=== PATIENT | male | born 1940 | race Caucasian/White ===

== ENCOUNTER 2020-04-23 10:00 | Observation (INO) | payer BC ==
--- NOTE | 2020-04-23 13:25 | CT ---
EXAMINATION TYPE: CT brain wo con DATE OF EXAM: 04/23/2020 COMPARISON: None INDICATION: dizziness DLP: 1099.4 mGycm, Automated exposure control for dose reduction was used. CONTRAST: None CT of the brain is performed utilizing 3 mm thick sections through the posterior fossa and 3 mm thick sections through the remaining calvarium. Study is performed within 24 hours of arrival to the hosp ital. No abnormal hyperdensity is present to suggest an acute intracranial hemorrhage. No mass lesion is evident. No acute infarcts are evident. Ventricles and sulci are appropriate for the patient age. There is a retention cyst or polyp within the left maxillary sinus. Remaining paranasal sinuses withi n the [id number] are clear. Mastoid air cells are clear. There is a subcutaneous nodule in the lower occipital region posteriorly. Preliminary report was provided at the time of preliminary interpretation. IMPRESSIONS: 1. No acute intracranial process.
[2020-04-23 13:42] LABS: Albumin 3.8 g/dL (3.5-5.0); Calcium 8.4 mg/dL (8.4-10.2); Magnesium 1.8 mg/dL (1.6-2.3); Potassium 4.3 mmol/L (3.5-5.1); Total Bilirubin 2.4 mg/dL (0.2-1.3); Total Protein 6.2 g/dL (6.3-8.2)
[2020-04-23 14:05] LABS: D-Dimer 0.35 mg/L FEU (<0.60); INR 1.2 (<1.2); Prothrombin Time 11.8 sec (9.0-12.0)
[2020-04-23 14:06] LABS: Partial Thromboplastin Time 18.9 sec (22.0-30.0)
[2020-04-23 14:21] LABS: Basophils % (A) 0 %; Eosinophils # (A) 0.1 k/uL (0-0.7); Eosinophils % (A) 1 %; HCT 35.5 % (39.0-53.0); HGB 11.3 gm/dL (13.0-17.5); Hypochromasia Moderate; Lymphocytes # (A) 0.3 k/uL (1.0-4.8); Lymphocytes % (A) 5 %; MCH 21.8 pg (25.0-35.0); MCHC 31.8 g/dL (31.0-37.0); MCV 68.7 fL (80.0-100.0); Mean Platelet Volume 6.9; Microcytosis Marked; Monocytes # (A) 0.4 k/uL (0-1.0); Monocytes % (A) 5 %; Neutrophils # (A) 6.6 k/uL (1.3-7.7); Neutrophils % (A) 89 %; Platelet Count 64 k/uL (150-450); Poikilocytosis Slight; RBC 5.17 m/uL (4.30-5.90); WBC 7.4 k/uL (3.8-10.6)
--- NOTE | 2020-04-23 14:33 | XR ---
Right hand HISTORY: Pain, trauma 3 views of right hand. Bone mineralization, joint spaces and alignment are maintained. IMPRESSION: No fracture or dislocation.
--- NOTE | 2020-04-23 14:34 | XR ---
EXAMINATION TYPE: XR chest 2V DATE OF EXAM: 04/23/2020 COMPARISON: 04/23/2020 earlier exam INDICATION: Enlarged heart TECHNIQUE: Frontal and lateral views of the chest are obtained. FINDINGS: The heart size is normal. The pulmonary vasculature is normal. The lungs are clear. IMPRESSION: 1. No acute pulmonary process.
[2020-04-23] MEDS ORDERED: NALOXONE 0.4 MG/ML 1 ML VIAL IV PRN (14:36)
[2020-04-23] MEDS ORDERED: ONDANSETRON 4 MG/2 ML VIAL IVP PRN (14:36)
[2020-04-23] MEDS ORDERED: ACETAMINOPHEN TAB 325 MG TAB PO PRN (15:29)
[2020-04-23] MEDS ORDERED: HYDROcodone/APAP 5-325MG 1 EACH TAB PO PRN (15:29)
--- NOTE | 2020-04-23 18:13 | P.HPIM ---
History of Present Illness H&P Date: 04/23/20 Chief Complaint: Syncopal episode 79-year-old male with PMH of hepatitis B cirrhosis, aortic aneurysm follows at [facility] presents to the ED after syncopal episode. Patient states that he woke up around 4 AM feeling cold and shivering. He went downstairs to use the toilet. As he got up he started feeling dizzy and lost consciousness. He denied any bladder or bowel incontinence. He denied any postictal confusion. He was able to regain consciousness after a few seconds. He was able to measure his temperature 100F. Patient also reports pain in between the shoulder blades that has been ongoing for the past 3-4 days. He also reports some blood in his urine. He denies any headache, lower extremity edema, nausea or vomiting, cough, chest pain, shortness of breath, palpitations. No changes in bowel habits. He denies any changes in appetite or weight. He denies any current dizziness, numbness/weakness/tingling of the extremities. In the ED, his vital signs were stable. CBC showed hemoglobin of 11.3, MCV of 68.7 and platelet count of 64. INR was 1.2. D-dimer was negative. CMP showed sodium of 135, BUN of 21, glucose 136, total bilirubin 2.4. Troponin was less than 0.012 with EKG showing sinus rhythm with first-degree AV block. Chest x-ray was negative. CT brain was negative. And x-ray was negative. Patient is admitted for syncopal episode with cardiology on consultation. Review of Systems Pertinent positives and negatives as discussed in HPI, a complete review of systems was performed and all other systems are negative. Medications and Allergies Home Medications Medication Instructions Recorded Confirmed Type Aspirin 325 mg PO DAILY PRN 04/23/20 04/23/20 History Metoprolol Succinate (ER) [Toprol 25 mg PO DAILY 04/23/20 04/23/20 History XL] Tenofovir Alafenamide Fumarate 25 mg PO DAILY 04/23/20 04/23/20 History [Vemlidy] Allergies Allergy/AdvReac Type Severity Reaction Status Date / Time No Known Allergies Allergy Verified 04/23/20 15:44 Physical Exam Vitals: Intake and Output 04/23/20 04/23/20 04/23/20 06:59 14:59 22:59 Other: Weight 88.451 kg General: [non toxic], [no distress], [appears at stated age] Derm: [warm], [dry] Head: [atraumatic], [normocephalic], [symmetric] Eyes: [EOMI], [no lid lag], [anicteric sclera] Mouth: [no lip lesion], [mucus membranes moist] Cardiovascular: [S1S2 reg], [no murmur], [positive posterior tibial pulse bilateral], Lungs: [CTA bilateral], [no rhonchi, no rales] , [no accessory muscle use] Abdominal: [soft], [ nontender to palpation], [no guarding], [no appreciable organomegaly] Ext: [no gross muscle atrophy], [no edema], [no contractures] Neuro: [ CN II-XI grossly intact], [no focal neuro deficits] Psych: [Alert], [oriented], [appropriate affect] Results CBC & Chem 7: 04/23/20 10:35 04/23/20 10:35 Labs: Abnormal Lab Results - Last 24 Hours (Table) 04/23/20 04/23/20 04/23/20 Range/Units 10:35 10:35 10:35 Hgb 11.3 L (13.0-17.5) gm/dL Hct 35.5 L (39.0-53.0) % MCV 68.7 L (80.0-100.0) fL MCH 21.8 L (25.0-35.0) pg RDW 16.0 H (11.5-15.5) % Plt Count 64 L (150-450) k/uL Lymphocytes # 0.3 L (1.0-4.8) k/uL INR 1.2 H (<1.2) APTT 18.9 L (22.0-30.0) sec Sodium 135 L (137-145) mmol/L BUN 21 H (9-20) mg/dL Glucose 136 H (74-99) mg/dL Total Bilirubin 2.4 H (0.2-1.3) mg/dL Alkaline Phosphatase 30 L (38-126) U/L Total Protein 6.2 L (6.3-8.2) g/dL Assessment and Plan Assessment: Syncopal episode likely related to orthostatic hypotension Microcytic anemia with thrombocytopenia Fever, unknown etiology Hematuria 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 Initial troponin was less than 0.012 with EKG showing first-degree AV block. We will trend troponins/EKG to rule out ACS. Echocardiogram has been ordered. Orthostatic vitals will be obtained. D-dimer is negative and there is low concerns for PE. Patient will be placed on telemetry monitoring. Cardiology will be consulted for further recommendations. Patient has microcytic anemia with hemoglobin of 11.3 and MCV of 68.7. Unknown baseline. He does report some hematuria. We will obtain iron studies and ferritin. Transfuse PRBC if hemoglobin is less than 7. His thrombocytopenia is likely related to history of hepatitis B. Plans to repeat CBC tomorrow morning. Patient had fever of 100 Fahrenheit. Also with chills. Chest x-ray unremarkable. We will obtain urinalysis with reflex to culture. Coronavirus testing is pending. Continue to monitor. Patient reports blood in his urine with particles. Follow urinalysis with reflex to culture. Obtain kidney and bladder ultrasound. Patient might need cystoscopy in the outpatient setting to rule out bladder cancer. Patient has known history of hepatitis B. He follows up at [facility] for management. Continue Tenofovir. Plans to repeat CMP and INR tomorrow morning. Patient reports history of aortic aneurysm. Patient will need to follow-up at [facility] for further management of his aortic aneurysm. DVT prophylaxis: [Heparin] Discussed with: [Patient and family] Anticipated discharge: [1-2 days] Anticipated discharge place: [Home] A total of [35] minutes was spent on the care of this complex patient more than 50% of the time was spent in counseling and care coordination. Patient names his son Eryn decision maker if he can't make decisions for himself. Patient would like to be full code.
--- NOTE | 2020-04-23 20:59 | US ---
EXAMINATION TYPE: US kidneys/renal and bladder DATE OF EXAM: 04/23/2020 COMPARISON: NONE CLINICAL HISTORY: hematuria. Hematuria. Hx kidney cysts. EXAM MEASUREMENTS: Right Kidney: 12.1 x 6.2 x 5.7 cm Left Kidney: 13.5 x 5.9 x 6.0 cm Right Kidney: Measures slightly enlarged. Dilated renal pelvis. Multiple anechoic areas seen. Largest two measure: #1-Inferomedial: 7.0 x 5.2 x 4.7 cm. #2: Superolateral- 5.5 x 4.6 x 4.6 cm. Left Kidney: Measures enlarged. Multiple anechoic areas seen. Largest two measure: #1- Inferolateral: 6.5 x 6.8 x 5.8 cm. #2- Medial at mid: 4.5 x 4.9 x 6.3 cm. Bladder: Appears to be anechoic. Bilateral Jets seen: No; left jet seen. IMPRESSION: There are multiple bilateral renal cortical cysts. There is left side ureteral jet seen. No ureteral jet seen on the right side and there appears to be dilated right side renal pelvis consis tent with obstruction. No solid renal mass.
[2020-04-24 02:09] LABS: Appearance,Urine Clear (Clear); Bacteria,Urine Rare /hpf; Bilirubin,Urine Negative (Negative); Blood,Urine Moderate (Negative); Color,Urine Light Yellow; Glucose,Urine (UA) Negative (Negative); Ketones,Urine Negative (Negative); Leukocyte Esterase,Urine Moderate (Negative); Mucus,Urine Rare /hpf; Nitrite,Urine Negative (Negative); Protein,Urine Negative (Negative); RBC,Urine 101 /hpf (0-5); Urobilinogen,Urine <2.0 mg/dL (<2.0); WBC,Urine 22 /hpf (0-5)
[2020-04-24] MEDS: HEPARIN SODIUM,PORCINE 5,000 UNIT/ML 1 ML VIAL SQ SCH ×4 (05:13→22:25)
[2020-04-24] MEDS: SODIUM CHLORIDE 0.9% 1,000 ML IV SCH ×3 (05:55→20:24)
[2020-04-24 06:34] LABS: Basophils % (A) 0 %; Eosinophils # (A) 0.1 k/uL (0-0.7); Eosinophils % (A) 2 %; HCT 33.8 % (39.0-53.0); HGB 10.7 gm/dL (13.0-17.5); Hypochromasia Moderate; Lymphocytes # (A) 0.7 k/uL (1.0-4.8); Lymphocytes % (A) 14 %; MCH 21.5 pg (25.0-35.0); MCHC 31.5 g/dL (31.0-37.0); MCV 68.2 fL (80.0-100.0); Mean Platelet Volume 8.3; Microcytosis Marked; Monocytes # (A) 0.5 k/uL (0-1.0); Monocytes % (A) 10 %; Neutrophils # (A) 3.5 k/uL (1.3-7.7); Neutrophils % (A) 71 %; RBC 4.95 m/uL (4.30-5.90); RDW 15.9 % (11.5-15.5); WBC 4.9 k/uL (3.8-10.6)
[2020-04-24 06:46] LABS: Albumin 3.5 g/dL (3.5-5.0); Calcium 8.6 mg/dL (8.4-10.2); Potassium 3.9 mmol/L (3.5-5.1); Total Bilirubin 2.8 mg/dL (0.2-1.3); Total Protein 5.8 g/dL (6.3-8.2)
[2020-04-24 06:51] LABS: Anisocytosis (M) Present; Platelet Count 81 k/uL (150-450); Poikilocytosis (M) Present
--- NOTE | 2020-04-24 09:53 | P.CRDCN ---
History of Present Illness History of present illness: HISTORY OF PRESENTING ILLNESS This is a pleasant 79-year-old male past medical history significant for aortic aneurysm, hypertension, hepatitis B. He follows in the office with a cardiologi [facility], Dr. Cooper. We have been asked to see in consultation for syncope. He states he woke in the night last night shivering. He covered in the blanket and fell back asleep for about 30 minutes. He then woke up again shivering significantly. He got up and walked to the restroom. He sat down on the toilet to attempt to urinate. He was not having a bowel movement or straining. He then stood up to wash his hands and felt diaphoretic, lightheaded, nauseated and passed out. When he woke up he continued to feel diaphoretic and nauseated. His checked his blood pressure and came to be low. He also states he had a fever of 100F at home. Orthostatic vital signs checked in the emergency department were unremarkable. He's had no further symptoms of dizziness or syncope since arriving in the emergency department. Telemetry tracings unremarkable. He states he follows closely at [facility] as well as with his assistant site manager regarding an aortic aneurysm. He states his last computed tomography scan was just over one year ago and measured approximately 4.9 cm. Abdominal ultrasound reveals a dilated right sided renal pelvis consistent with obstruction. DIAGNOSTICS EKG reveals sinus mechanism first-degree AV block and left axis deviation with a heart rate of 78. Chest xray negative for an acute cardiopulmonary process. Laboratory reviewed, WBC 4.9, hemoglobin 10.7, platelets 81, d-dimer 0.35, INR 1.2, sodium 136, potassium 3.9, creatinine 1.2, cardiac enzymes negative 2. Current cardiac medications include Toprol 25 mg daily. REVIEW OF SYSTEMS At the time of my exam: CONSTITUTIONAL: Denies fever or chills. CARDIOVASCULAR: Denies chest pain, shortness of breath, orthopnea, PND or palpitations. RESPIRATORY: Denies cough. GASTROINTESTINAL: Denies abdominal pain, diarrhea, constipation, nausea or vomiting. MUSCULOSKELETAL: Denies myalgias. NEUROLOGIC: Denies numbness, tingling or weakness. ENDOCRINE: Denies fatigue, weight change, polydipsia or polyurina. GENITOURINARY: Denies burning, hematuria or urgency with micturation. HEMATOLOGIC: Denies history of anemia or bleeding. PHYSICAL EXAMINATION Blood pressure 125/78 heart rate 60 afebrile and maintaining oxygen saturation on room air. CONSTITUTIONAL: No apparent distress. HEENT: Head is normocephalic. Pupils are equal, round. Sclerae anicteric. Mucous membranes of the mouth are moist. No JVD. No carotid bruit. CHEST EXAMINATION: Lungs are clear to auscultation. No chest wall tenderness is noted on palpation or with deep breathing. HEART EXAMINATION: Regular rate and rhythm. S1, S2 heard. Soft systolic ejection murmur at the left sternal border, no gallops or rub. ABDOMEN: Soft, nontender. Positive bowel sounds. EXTREMITIES: 2+ peripheral pulses, no lower extremity edema and no calf tenderness. NEUROLOGIC EXAMINATION: Patient is awake, alert and oriented x3. ASSESSMENT Syncope secondary to orthostatic hypotension History of aortic aneurysm Hepatitis B Microcytic hypochromic anemia Thrombocytopenia Possible right sided renal obstruction PLAN An acute coronary event has been ruled out. No significant bradycardia arrhythmia noted on telemetry tracings. Episode related to orthostatic hypotension. Obtain CT of the chest to assess aortic aneurysm. Echocardiogram has been requested and will be reviewed. Thank you kindly for this consultation. Nurse Practitioner note has been reviewed, I agree with a documented findings and plan of care. Patient was seen and examined. Past Medical History Past Medical History: Liver Disease, Syncope Additional Past Medical History / Comment(s): aortic anerysm. hep B positive. Liver Cancer seen through [facility] History of Any Multi-Drug Resistant Organisms: None Reported Past Surgical History: Cholecystectomy Past Anesthesia/Blood Transfusion Reactions: No Reported Reaction Past Psychological History: No Psychological Hx Reported Smoking Status: Never smoker Medications and Allergies Home Medications Medication Instructions Recorded Confirmed Type Aspirin 325 mg PO DAILY PRN 04/23/20 04/23/20 History Metoprolol Succinate (ER) [Toprol 25 mg PO DAILY 04/23/20 04/23/20 History XL] Tenofovir Alafenamide Fumarate 25 mg PO DAILY 04/23/20 04/23/20 History [Vemlidy] Allergies Allergy/AdvReac Type Severity Reaction Status Date / Time No Known Allergies Allergy Verified 04/23/20 15:44 Physical Exam Vitals: Vital Signs Temp Pulse Pulse Pulse Pulse Resp BP 04/24/20 04:40 97.8 F 63 16 04/24/20 04:00 16 04/24/20 00:00 16 04/23/20 23:57 68 84 96 68 04/23/20 20:29 98.7 F 77 16 136/71 04/23/20 19:20 77 16 04/23/20 18:55 16 BP BP BP Pulse Ox 04/24/20 04:40 119/71 96 04/24/20 04:00 04/24/20 00:00 04/23/20 23:57 101/65 118/61 105/60 04/23/20 20:29 98 04/23/20 19:20 04/23/20 18:55 Intake and Output 04/23/20 04/24/20 04/24/20 22:59 06:59 14:59 Intake Total 480 Balance 480 Intake: Oral 480 Other: # Voids 2 2 Weight 88.451 kg Results 04/24/20 06:22 04/24/20 06:22 Cardiac Enzymes 04/23/20 04/23/20 04/23/20 Range/Units 10:35 10:35 19:45 AST 46 (17-59) U/L Troponin I <0.012 <0.012 (0.000-0.034) ng/mL 04/24/20 Range/Units 06:22 AST 27 (17-59) U/L Troponin I (0.000-0.034) ng/mL Coagulation 04/23/20 Range/Units 10:35 PT 11.8 (9.0-12.0) sec APTT 18.9 L (22.0-30.0) sec CBC 04/23/20 04/24/20 Range/Units 10:35 06:22 WBC 7.4 4.9 (3.8-10.6) k/uL RBC 5.17 4.95 (4.30-5.90) m/uL Hgb 11.3 L 10.7 L (13.0-17.5) gm/dL Hct 35.5 L 33.8 L (39.0-53.0) % Plt Count 64 L 81 L (150-450) k/uL Comprehensive Metabolic Panel 04/23/20 04/24/20 Range/Units 10:35 06:22 Sodium 135 L 136 L (137-145) mmol/L Potassium 4.3 3.9 (3.5-5.1) mmol/L Chloride 106 107 (98-107) mmol/L Carbon Dioxide 23 24 (22-30) mmol/L BUN 21 H 19 (9-20) mg/dL Creatinine 1.05 1.20 (0.66-1.25) mg/dL Glucose 136 H 115 H (74-99) mg/dL Calcium 8.4 8.6 (8.4-10.2) mg/dL AST 46 27 (17-59) U/L ALT 30 27 (4-49) U/L Alkaline Phosphatase 30 L 26 L (38-126) U/L Total Protein 6.2 L 5.8 L (6.3-8.2) g/dL Albumin 3.8 3.5 (3.5-5.0) g/dL Current Medications Generic Name Dose Route Start Last Admin Trade Name Freq PRN Reason Stop Dose Admin Acetaminophen 650 mg 04/23/20 15:29 Tylenol Tab PO Q6HR PRN Mild Pain or Fever > 100.5 Hydrocodone Bitart/Acetaminophen 1 each 04/23/20 15:29 Ola 5-325 PO Q4HR PRN Moderate Pain Heparin Sodium (Porcine) 5,000 unit 04/23/20 21:00 04/24/20 05:13 Heparin SQ Not Given Q12HR [facility] Sodium Chloride 1,000 mls @ 75 mls/hr 04/23/20 14:45 04/24/20 05:59 Saline 0.9% IV Not Given .[id number] [facility] Metoprolol Succinate 25 mg 04/24/20 09:00 Toprol Xl PO DAILY [facility] Naloxone HCl 0.2 mg 04/23/20 14:36 Narcan IV Q2M PRN Opioid Reversal Patient's Own ( 25 mg 04/24/20 09:00 Tenofovir PO Alafenamide Fumarate DAILY ANNALEE [Vemlidy] 25 Mg) Ondansetron HCl 4 mg 04/23/20 14:36 Zofran IVP Q8HR PRN Nausea And Vomiting Intake and Output 04/23/20 04/24/20 04/24/20 22:59 06:59 14:59 Intake Total 480 Balance 480 Intake: Oral 480 Other: # Voids 2 2 Weight 88.451 kg 04/24/20 06:22 04/24/20 06:22
--- NOTE | 2020-04-24 10:00 | CT ---
EXAMINATION TYPE: CT angio chest DATE OF EXAM: 04/24/2020 COMPARISON: None HISTORY: Assess aorta, History of aneurysm CT DLP: 1083.6 mGycm CONTRAST: CTA thoracic aorta with 3-D reconstruction is performed and without and with IV Contrast, patient inj ected with 100 ml mL of Isovue 370. Contrast CTA of the thoracic aorta was performed from the lung apex through the upper abdomen. 3D re construction imaging obtained at a separate workstation. CT Chest: THORACIC AORTA: Ascending thoracic aortic aneurysm measuring 5 cm AP dimension. Proximal descending t horacic aorta is aneurysmal at 4 cm AP dimension. Ascending thoracic aorta at its midportion measures 3.6 cm AP dimension and distally at the aortic hiatus measures 3.5 cm. Mild atheromatous changes see n. There is no evidence for dissection or periaortic collection. LUNGS: The lungs are clear and free of infiltrate or atelectasis. No pulmonary nodule or mass is det ected. No pleural effusion or CT evidence of interstitial lung disease. MEDIASTINUM: No evidence for mediastinal hematoma. The heart is not enlarged. No evidence for med iastinal mass or adenopathy. HILAR STRUCTURES: No evidence for mass. No hilar adenopathy is appreciated. OTHER: Partially imaged renal cystic changes upper abdomen. IMPRESSION- Thoracic aortic aneurysm without complicating factors as discussed above.
[2020-04-24] MEDS: METOPROLOL SUCCINATE (ER) 25 MG TAB.ER.24H PO SCH (10:18)
--- NOTE | 2020-04-24 11:07 | ECHOF ---
Referral Reason:Syncope MEASUREMENTS -------- HEIGHT: 175.3 cm WEIGHT: 88.5 kg BP: RVIDd: 3.9 cm (< 3.3) IVSd: 1.3 cm (0.6 - 1.1) LVIDd: 4.5 cm (3.9 - 5.3) LVPWd: 1.3 cm (0.6 - 1.1) IVSs: 1.7 cm LVIDs: 3.4 cm LVPWs: 1.4 cm LA Diam: 4.3 cm (2.7 - 3.8) LAESV Index (A-L): 28.18 ml/m Ao Diam: 4.3 cm (2.0 - 3.7) MV EXCURSION: 20.304 mm (> 18.000) MV EF SLOPE: 79 mm/s (70 - 150) EPSS: 0.5 cm MV E Raúl: 0.59 m/s MV DecT: 259 ms MV A Raúl: 0.70 m/s MV E/A Ratio: 0.85 AV maxP.89 mmHg AV meanP.39 mmHg AR PHT: 403 ms RAP: 5.00 mmHg RVSP: 25.35 mmHg FINDINGS -------- Sinus rhythm. This was a technically adequate study. The left ventricular size is normal. There is mild concentric left ventricular hypertrophy. Overa ll left ventricular systolic function is normal with, an EF between 55 - 60 %. The right ventricle is mild to moderately enlarged. LA is midly dilated 29-33ml/m2. The right atrial size is normal. The aortic valve is trileaflet and appears structurally normal. There is moderate aortic regurgitat ion. The mitral valve is normal. [id number] mitral regurgitation is present. The tricuspid valve appears structurally normal. Mild tricuspid regurgitation present. Right vent ricular systolic pressure is normal at < 35 mmHg. Trace/mild (physiologic) pulmonic regurgitation. Aortic Root is Dilated and measures 4.0cm, Ascending is dilated and measures 5.2cm. There is no pericardial effusion. CONCLUSIONS -------- 1. There is mild concentric left ventricular hypertrophy. 2. Overall left ventricular systolic function is normal with, an EF between 55 - 60 %. 3. The right ventricle is mild to moderately enlarged. 4. LA is midly dilated 29-33ml/m2. 5. There is moderate aortic regurgitation. 6. Ijzt-hp-epjegrdf mitral regurgitation is present. 7. Mild tricuspid regurgitation present. 8. Trace/mild (physiologic) pulmonic regurgitation. 9. Aortic Root is Dilated and measures 4.0cm, Ascending is dilated and measures 5.2cm. 10. There is no pericardial effusion. [place] ATTENDANT: Shima Malhotra RDCS
[2020-04-24 11:50] LABS: % Iron Saturation 19.38 (15.00-50.00)
[2020-04-24 13:42] LABS: Ferritin 149.3 ng/mL (22.0-322.0)
[2020-04-24] MEDS ORDERED: IOPAMIDOL CONTRAST (ORAL USE) VIAL PO PRN (16:23)
--- NOTE | 2020-04-24 17:19 | P.PN ---
Subjective Patient is doing well today. He denies dizziness or lightheadedness. Objective - Vital Signs Vital signs: Vital Signs Temp 97.9 F 04/24/20 16:00 Pulse 69 04/24/20 16:00 Resp 18 04/24/20 16:00 BP 168/82 04/24/20 16:00 Pulse Ox 96 04/24/20 16:00 Intake & Output 04/23/20 04/24/20 04/24/20 18:59 06:59 18:59 Intake Total 480 237 Balance 480 237 Weight 88.451 kg Intake: Oral 480 237 Other: # Voids 2 1 - Exam General: The patient is awake and alert, in no distress Eye: there is normal conjunctiva bilaterally. Neck: The neck is supple, there is no JVD. Cardiovascular: Normal S1-S2, no S3-S4, no murmurs. Respiratory: Lungs clear to auscultation bilaterally Gastrointestinal: Abdomen is soft, nontender Musculoskeletal: There is no pedal edema. Neurological:. Speech is normal. Skin: Skin is warm and dry - Labs CBC & Chem 7: 04/24/20 06:22 04/24/20 06:22 Labs: Abnormal Lab Results - Last 24 Hours (Table) 04/23/20 04/23/20 04/23/20 Range/Units 10:35 10:35 10:35 Hgb 11.3 L (13.0-17.5) gm/dL Hct 35.5 L (39.0-53.0) % MCV 68.7 L (80.0-100.0) fL MCH 21.8 L (25.0-35.0) pg RDW 16.0 H (11.5-15.5) % Plt Count 64 L (150-450) k/uL Lymphocytes # 0.3 L (1.0-4.8) k/uL INR 1.2 H (<1.2) APTT 18.9 L (22.0-30.0) sec Sodium 135 L (137-145) mmol/L BUN 21 H (9-20) mg/dL Glucose 136 H (74-99) mg/dL Iron (65-175) ug/dL Total Bilirubin 2.4 H (0.2-1.3) mg/dL Alkaline Phosphatase 30 L (38-126) U/L Total Protein 6.2 L (6.3-8.2) g/dL Urine Blood (Negative) Ur Leukocyte Esterase (Negative) Urine RBC (0-5) /hpf Urine WBC (0-5) /hpf Urine Bacteria (None) /hpf Urine Mucus (None) /hpf 04/24/20 04/24/20 04/24/20 Range/Units 00:20 06:22 06:22 Hgb 10.7 L (13.0-17.5) gm/dL Hct 33.8 L (39.0-53.0) % MCV 68.2 L (80.0-100.0) fL MCH 21.5 L (25.0-35.0) pg RDW 15.9 H (11.5-15.5) % Plt Count 81 L (150-450) k/uL Lymphocytes # 0.7 L (1.0-4.8) k/uL INR (<1.2) APTT (22.0-30.0) sec Sodium 136 L (137-145) mmol/L BUN (9-20) mg/dL Glucose 115 H (74-99) mg/dL Iron 56 L (65-175) ug/dL Total Bilirubin 2.8 H (0.2-1.3) mg/dL Alkaline Phosphatase 26 L (38-126) U/L Total Protein 5.8 L (6.3-8.2) g/dL Urine Blood Moderate H (Negative) Ur Leukocyte Esterase Moderate H (Negative) Urine RBC 101 H (0-5) /hpf Urine WBC 22 H (0-5) /hpf Urine Bacteria Rare H (None) /hpf Urine Mucus Rare H (None) /hpf Microbiology - Last 24 Hours (Table) 04/24/20 00:20 Urine Culture - Preliminary Urine,Voided Assessment and Plan Assessment: 1. Syncopal episode likely related to orthostatic hypotension: Seen and evaluated by cardiology. No events on telemetry monitoring. Echocardiogram showed preserved EF with no significant valvular abnormalities. D-dimer is negative and there is low concerns for PE. 2. Microcytic anemia with thrombocytopenia, chronic secondary to the length of ischemia 3. Microscopic hematuria, is no evidence of UTI. Ultrasound showed multiple renal cyst with questionable obstruction on the right side. Urology consulted awaiting evaluation. 4. 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 History of aortic aneurysm: The CT angiogram of the chest done. Patient will follow-up in the office for comparison. Anticipate discharge home tomorrow
--- NOTE | 2020-04-24 17:26 | P.GSCN ---
History of Present Illness Consult date: 04/24/20 History of present illness: 79 yo male who developed chills and then dizziness at home He was admitted for syncope. He had an abdominal us that showed a dilated right renal pelvis. Hs urinalysis showed hematuria, pyuria without bacteruria. He has no urological history He has never had a stone or urological disease Review of Systems All systems: negative - Constitutional Denies fever, Denies weight loss - EENT Eyes: denies blurred vision Ears, nose, mouth and throat: Denies dysphagia - Cardiovascular Denies chest pain, Denies shortness of breath - Respiratory Denies cough, Denies 7 - Gastrointestinal Reports as per HPI - Genitourinary Denies dysuria, Denies hematuria - Integumentary Denies rash, Denies unusual bruising - Neurological Denies headaches, Denies syncope - Hematologic/Lymphatic Denies easy bleeding, Denies easy bruising Past Medical History Past Medical History: Liver Disease, Syncope Additional Past Medical History / Comment(s): aortic anerysm. hep B positive. [facility] of Any Multi-Drug Resistant Organisms: None Reported Past Surgical History: Cholecystectomy Past Anesthesia/Blood Transfusion Reactions: No Reported Reaction Past Psychological History: No Psychological Hx Reported Smoking Status: Never smoker Medications and Allergies Home Medications Medication Instructions Recorded Confirmed Type Aspirin 325 mg PO DAILY PRN 04/23/20 04/23/20 History Metoprolol Succinate (ER) [Toprol 25 mg PO DAILY 04/23/20 04/23/20 History XL] Tenofovir Alafenamide Fumarate 25 mg PO DAILY 04/23/20 04/23/20 History [Vemlidy] Allergies Allergy/AdvReac Type Severity Reaction Status Date / Time No Known Allergies Allergy Verified 04/23/20 15:44 Surgical - Exam Vital Signs Resp 16 04/23/20 18:55 - General well developed, well nourished, no distress - Eyes PERRL - ENT no hearing loss - Neck no masses, trachea midline - Respiratory normal expansion, normal respiratory effort - Cardiovascular Rhythm: regular - Abdomen Abdomen: soft, non tender - Genitourinary normal penis with no external lesions, testicles present - Integumentary no rash, no growths - Neurologic normal coordination, normal sensation - Musculoskeletal normal posture - Psychiatric oriented to time, oriented to person, oriented to place, speech is normal, memory intact Results - Labs 04/24/20 06:22 04/24/20 06:22 Abnormal Lab Results - Last 24 Hours (Table) 04/23/20 04/23/20 04/23/20 Range/Units 10:35 10:35 10:35 Hgb 11.3 L (13.0-17.5) gm/dL Hct 35.5 L (39.0-53.0) % MCV 68.7 L (80.0-100.0) fL MCH 21.8 L (25.0-35.0) pg RDW 16.0 H (11.5-15.5) % Plt Count 64 L (150-450) k/uL Lymphocytes # 0.3 L (1.0-4.8) k/uL INR 1.2 H (<1.2) APTT 18.9 L (22.0-30.0) sec Sodium 135 L (137-145) mmol/L BUN 21 H (9-20) mg/dL Glucose 136 H (74-99) mg/dL Iron (65-175) ug/dL Total Bilirubin 2.4 H (0.2-1.3) mg/dL Alkaline Phosphatase 30 L (38-126) U/L Total Protein 6.2 L (6.3-8.2) g/dL Urine Blood (Negative) Ur Leukocyte Esterase (Negative) Urine RBC (0-5) /hpf Urine WBC (0-5) /hpf Urine Bacteria (None) /hpf Urine Mucus (None) /hpf 04/24/20 04/24/20 04/24/20 Range/Units 00:20 06:22 06:22 Hgb 10.7 L (13.0-17.5) gm/dL Hct 33.8 L (39.0-53.0) % MCV 68.2 L (80.0-100.0) fL MCH 21.5 L (25.0-35.0) pg RDW 15.9 H (11.5-15.5) % Plt Count 81 L (150-450) k/uL Lymphocytes # 0.7 L (1.0-4.8) k/uL INR (<1.2) APTT (22.0-30.0) sec Sodium 136 L (137-145) mmol/L BUN (9-20) mg/dL Glucose 115 H (74-99) mg/dL Iron 56 L (65-175) ug/dL Total Bilirubin 2.8 H (0.2-1.3) mg/dL Alkaline Phosphatase 26 L (38-126) U/L Total Protein 5.8 L (6.3-8.2) g/dL Urine Blood Moderate H (Negative) Ur Leukocyte Esterase Moderate H (Negative) Urine RBC 101 H (0-5) /hpf Urine WBC 22 H (0-5) /hpf Urine Bacteria Rare H (None) /hpf Urine Mucus Rare H (None) /hpf Microbiology - Last 24 Hours (Table) 04/24/20 00:20 Urine Culture - Preliminary Urine,Voided Diabetes panel 04/23/20 04/24/20 Range/Units 10:35 06:22 Sodium 135 L 136 L (137-145) mmol/L Potassium 4.3 3.9 (3.5-5.1) mmol/L Chloride 106 107 (98-107) mmol/L Carbon Dioxide 23 24 (22-30) mmol/L BUN 21 H 19 (9-20) mg/dL Creatinine 1.05 1.20 (0.66-1.25) mg/dL Glucose 136 H 115 H (74-99) mg/dL Calcium 8.4 8.6 (8.4-10.2) mg/dL AST 46 27 (17-59) U/L ALT 30 27 (4-49) U/L Alkaline Phosphatase 30 L 26 L (38-126) U/L Total Protein 6.2 L 5.8 L (6.3-8.2) g/dL Albumin 3.8 3.5 (3.5-5.0) g/dL Calcium panel 04/23/20 04/24/20 Range/Units 10:35 06:22 Calcium 8.4 8.6 (8.4-10.2) mg/dL Albumin 3.8 3.5 (3.5-5.0) g/dL Pituitary panel 04/23/20 04/24/20 Range/Units 10:35 06:22 Sodium 135 L 136 L (137-145) mmol/L Potassium 4.3 3.9 (3.5-5.1) mmol/L Chloride 106 107 (98-107) mmol/L Carbon Dioxide 23 24 (22-30) mmol/L BUN 21 H 19 (9-20) mg/dL Creatinine 1.05 1.20 (0.66-1.25) mg/dL Glucose 136 H 115 H (74-99) mg/dL Calcium 8.4 8.6 (8.4-10.2) mg/dL Adrenal panel 04/23/20 04/24/20 Range/Units 10:35 06:22 Sodium 135 L 136 L (137-145) mmol/L Potassium 4.3 3.9 (3.5-5.1) mmol/L Chloride 106 107 (98-107) mmol/L Carbon Dioxide 23 24 (22-30) mmol/L BUN 21 H 19 (9-20) mg/dL Creatinine 1.05 1.20 (0.66-1.25) mg/dL Glucose 136 H 115 H (74-99) mg/dL Calcium 8.4 8.6 (8.4-10.2) mg/dL Total Bilirubin 2.4 H 2.8 H (0.2-1.3) mg/dL AST 46 27 (17-59) U/L ALT 30 27 (4-49) U/L Alkaline Phosphatase 30 L 26 L (38-126) U/L Total Protein 6.2 L 5.8 L (6.3-8.2) g/dL Albumin 3.8 3.5 (3.5-5.0) g/dL - Imaging US - abdomen: report reviewed, image reviewed Assessment and Plan Assessment: Impression: syncope. Possible right hydronephrosis, microhematuria Plan: Ct urogram to r/o cuases of obstruction and hematuria.
--- NOTE | 2020-04-24 18:39 | CT ---
EXAMINATION TYPE: CT abdomen pelvis wo con DATE OF EXAM: 04/24/2020 HISTORY: Kidney stone, abnormal ultrasound CT DLP: 831.2 mGycm. Automated Exposure Control for Dose Reduction was Utilized. TECHNIQUE: CT scan of the abdomen and pelvis is performed without with oral but without IV contrast. COMPARISON: Renal ultrasound from yesterday FINDINGS: Within the limitations of a non-contrast study, the following observations are made. LUNG BASES: Mild bibasilar linear scarring and/or atelectasis. LIVER/GB: Cholecystectomy clips noted. Posterior segment right hepatic lobe inferiorly there is a rou ghly 4.2 x 3.1 cm hypoechoic area with some calcific foci of uncertain etiology. PANCREAS: No significant abnormality is seen. SPLEEN: 1 mild splenomegaly at 13.3 cm long axis X image 56.. ADRENALS: No significant abnormality is seen. KIDNEYS: There are 2 nonobstructing calculi right kidney lower pole level measuring up to 6 mm long a xis axial image 92. Left kidney shows roughly 4 calculi measuring up to 7 mm long axis upper pole lev el coronal image 64. Hyperdense collecting systems from recent CTA chest study noted. No hydronephros is noted bilaterally. Small calcification upper left renal pelvis coronal image 72. Correlating with ultrasound there are multiple thin-walled cysts of varying size and shape scattered throughout both k idneys with areas of cortical thinning bilaterally consistent with product of chronic medical renal d isease. Mild to moderate trabeculation and mild wall thickening superior aspect of the bladder. BOWEL: Oral contrast does not reach level of terminal ileum. No suspicious small or large bowel dilat ation. Normal appearing appendix extending from cecum in the right lower quadrant. Diverticula in the sigmoid colon without CT evidence for acute diverticulitis. GENITAL ORGANS: Enlarged prostate gland consistent with BPH bulging on bladder base.. LYMPH NODES: No greater than 1cm abdominal or pelvic lymph nodes are appreciated. OSSEOUS STRUCTURES: Moderate disc space narrowing and vacuum disc phenomenon lumbosacral junction. St raightening of spine. Facet arthropathy lower lumbar levels. Disc herniation L2-L3 level. OTHER: Small to moderate-sized fat-containing left inguinal hernia. IMPRESSION: Bilateral nephrolithiasis is present seen better on CT versus ultrasound. No hydronephros is or obstructing ureter calculi bilaterally.
[2020-04-24] MEDS: TENOFOVIR ALAFENAMIDE FUMARATE 25 MG PO SCH (18:47)
--- NOTE | 2020-04-25 08:53 | P.DS ---
Providers Date of admission: 04/23/20 15:29 Expected date of discharge: 04/25/20 Attending physician: Kenia Walker DO Consults: 04/23/20 14:37 Consult Physician Urgent Consulting Provider: Donavan Diaz Consult Reason/Comments: syncope Do you want consulting provider notified?: Yes 04/24/20 07:47 Consult Physician Routine Consulting Provider: Florencio Solo Consult Reason/Comments: abnormal US Do you want consulting provider notified?: Yes Primary care physician: Stated None Hospital Course: This is a 79-year-old male with past medical history noted below who presented to the hospital with a syncopal episode. Patient was evaluated in the ER and admitted to the hospital for further management of his medical problems noted below. 1. Syncopal episode likely related to orthostatic hypotension: Seen and evaluated by cardiology. No events on telemetry monitoring. Echocardiogram showed preserved EF with no significant valvular abnormalities. D-dimer is negative and there is low concerns for PE. Improved with IV fluid hydration. 2. Microcytic anemia with thrombocytopenia, chronic secondary to underlying thalassemia 3. Microscopic hematuria, is no evidence of UTI. Ultrasound showed multiple renal cyst with questionable obstruction on the right side. Urology consulted. CT urogram showed bilateral kidney stones measuring up to 7 mm with no evidence of obstruction or hydronephrosis. Follow-up with urology in the ER 4. 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 History of aortic aneurysm: CT angiogram of the chest done. Patient will follow-up in the office as usual with [facility] for comparison. Patient will be discharged home in a stable condition. For further details about this hospitalization please refer to the electronic chart. Plan - Discharge Summary New Discharge Prescriptions: Continue Metoprolol Succinate (ER) [Toprol XL] 25 mg PO DAILY Tenofovir Alafenamide Fumarate [Vemlidy] 25 mg PO DAILY Aspirin 325 mg PO DAILY PRN PRN Reason: migraine Discharge Medication List Aspirin 325 mg PO DAILY PRN 04/23/20 [History] Metoprolol Succinate (ER) [Toprol XL] 25 mg PO DAILY 04/23/20 [History] Tenofovir Alafenamide Fumarate [Vemlidy] 25 mg PO DAILY 04/23/20 [History] Follow up Appointment(s)/Referral(s): None,Stated [Primary Care Provider] - 1 Week Discharge Disposition: HOME SELF-CARE
[2020-04-25] MEDS: HEPARIN SODIUM,PORCINE 5,000 UNIT/ML 1 ML VIAL SQ SCH (09:00)
[2020-04-25] MEDS: TENOFOVIR ALAFENAMIDE FUMARATE 25 MG PO SCH (09:01)
[2020-04-25] MEDS: METOPROLOL SUCCINATE (ER) 25 MG TAB.ER.24H PO SCH (09:01)
[2020-04-25 09:39] VITALS: RESP 16
[2020-04-25 09:42] VITALS: BP 158/80; PULSE 77; TEMP 98
--- NOTE | 2020-04-25 09:47 | P.PN ---
Subjective Progress Note Date: 04/25/[address] scan shows bilateral renal stones and bilateral renal cysts. there is no hydronephrosis. The hematuria is due to the stones. From a urological standpoint he can go home but would need to be seen in the office in [place] in 2 weeks. Objective - Vital Signs Vital signs: Vital Signs Temp 98.0 F 04/25/20 03:20 Pulse 77 04/25/20 07:48 Resp 16 04/25/20 03:20 BP 158/80 04/25/20 07:48 Pulse Ox 96 04/25/20 03:20 Intake & Output 04/24/20 04/25/20 04/25/20 18:59 06:59 18:59 Intake Total 237 480 240 Output Total 300 Balance 237 180 240 Intake: Oral 237 480 240 Output: Urine 300 Other: # Voids 1 1 - Labs CBC & Chem 7: 04/24/20 06:22 04/24/20 06:22 Labs: Abnormal Lab Results - Last 24 Hours (Table) 04/24/20 Range/Units 06:22 Iron 56 L (65-175) ug/dL Microbiology - Last 24 Hours (Table) 04/24/20 00:20 Urine Culture - Preliminary Urine,Voided
--- NOTE | 2020-04-25 10:06 | P.PN ---
Subjective HISTORY OF PRESENTING ILLNESS This is a pleasant 79-year-old male past medical history significant for aortic aneurysm, hypertension, hepatitis B. He follows in the office with a collar cutter out of [place], Dr. Cooper. He is seen and examined standing in his room with vital signs. He has no further symptoms of dizziness or syncope. He denies chest pain, shortness of breath or palpitations. Blood pressure 158/80 heart rate 77 afebrile maintaining oxygen saturation on room air. Computed tomography scan of the chest revealed a stable aortic aneurysm measuring 5 cm with no evidence of dissection. Echocardiogram obtained reveals preserved LV systolic function with ejection fraction 55-60%, moderate aortic regurgitation, mild to moderate mitral regurgitation and mild tricuspid regurgitation noted. 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 A 5.2 cm. Telemetry tracings unremarkable. PHYSICAL EXAMINATION CONSTITUTIONAL: No apparent distress. HEENT: Head is normocephalic. Pupils are equal, round. Sclerae anicteric. Mucous membranes of the mouth are moist. No JVD. No carotid bruit. CHEST EXAMINATION: Lungs are clear to auscultation. No chest wall tenderness is noted on palpation or with deep breathing. HEART EXAMINATION: Regular rate and rhythm. S1, S2 heard. Soft systolic ejection murmur at the left sternal border, no gallops or rub. EXTREMITIES: 2+ peripheral pulses, no lower extremity edema and no calf tenderness. ASSESSMENT Syncope secondary to orthostatic hypotension History of aortic aneurysm Hepatitis B Microcytic hypochromic anemia Thrombocytopenia Possible right sided renal obstruction PLAN Clinically stable from a cardiac perspective for discharge. Follow-up with his primary collar cutter. Nurse Practitioner note has been reviewed, I agree with a documented findings and plan of care. Patient was seen and examined. Objective - Vital Signs Vital signs: Vital Signs Temp 98.0 F 04/25/20 03:20 Pulse 77 04/25/20 07:48 Resp 16 04/25/20 03:20 BP 158/80 04/25/20 07:48 Pulse Ox 96 04/25/20 03:20 Intake & Output 04/24/20 04/25/20 04/25/20 18:59 06:59 18:59 Intake Total 237 480 240 Output Total 300 Balance 237 180 240 Intake: Oral 237 480 240 Output: Urine 300 Other: # Voids 1 1 - Labs CBC & Chem 7: 04/24/20 06:22 07/09/20 06:22 Labs: Abnormal Lab Results - Last 24 Hours (Table) 04/24/20 Range/Units 06:22 Iron 56 L (65-175) ug/dL Microbiology - Last 24 Hours (Table) 04/24/20 00:20 Urine Culture - Preliminary Urine,Voided
== END 2020-04-25 11:12 | disposition home or self-care (01) ==
LOC: EC 10:00 → 1SOBS 15:29
PROVIDERS: ADMIT Internal Medicine; ATTEND Internal Medicine
DX: R55 Syncope and collapse (principal); R50.9 Fever, unspecified; B19.10 Unspecified viral hepatitis B without hepatic coma; C22.9 Malignant neoplasm of liver, not specified as primary or secondary; K74.60 Unspecified cirrhosis of liver; I71.2 Thoracic aortic aneurysm, without rupture; D50.9 Iron deficiency anemia, unspecified; D69.59 Other secondary thrombocytopenia; R79.1 Abnormal coagulation profile; D56.9 Thalassemia, unspecified; I08.3 Combined rheumatic disorders of mitral, aortic and tricuspid valves; I44.0 Atrioventricular block, first degree; N20.0 Calculus of kidney; N28.1 Cyst of kidney, acquired; Z79.82 Long term (current) use of aspirin; Z79.899 Other long term (current) drug therapy; Z90.49 Acquired absence of other specified parts of digestive tract; Z20.828 Contact with and (suspected) exposure to other viral communicable diseases
CPT/HCPCS: 93005 ×2; 96361 ×3; 96372 ×2; 96360; 99285; 36415; 93306; 85379; 80053 ×2; 82728; 83540; 83550; 83690; 83735; 84484; 85025 ×2; 85610; 85730; 81001; 87086; 87077; 87186; 73130; 71046; 76770; 70450; 71275; 74176; G0378 ×3; U0003; J1644 ×2; Q9967